=== PATIENT | female | born 1970 | race Caucasian/White ===

== ENCOUNTER 2025-04-19 18:05 | Emergency (ER) | payer OTHER ==
[2025-04-19] MEDS ORDERED: Ketorolac Tromethamine 30 MG (1 mL) VIAL ONE (20:01)
[2025-04-19] MEDS ORDERED: Boostrix 0.5 ML (Tdap) VIAL (>/=7 yrs of age) ONE (20:01)
== END 2025-04-19 20:32 | disposition home or self-care (01) ==
LOC: ERS 18:05
DX: S76.011A Strain of muscle, fascia and tendon of right hip, initial encounter (principal); S00.81XA Abrasion of other part of head, initial encounter; Z23 Encounter for immunization; W01.10XA Fall on same level from slipping, tripping and stumbling with subsequent striking against unspecified object, initial encounter
CPT/HCPCS: 90471; 90715; 96372; J1885